=== PATIENT | male | born 2000 | race Caucasian/White ===

== ENCOUNTER 2024-06-05 08:37 | Emergency (ER) | payer OTHER, SELFPAY ==
[2024-06-05 08:56] VITALS: BP 128/77; PULSE 68; RESP 16; TEMP 36.8; O2SAT 98; BMI 22.9
--- NOTE | 2024-06-05 09:04 | XR_ITS ---
Examination: Toes, left 3 views Technique: Toes AP oblique lateral 3 views Date and time of exam: June 05, 2024 0828 hrs. Indications: Injury to the foot today, foot pain Findings: No acute fracture No dislocation No foreign body Impression: No acute fracture
--- NOTE | 2024-06-05 09:09 | PD.EDANKLE ---
Lower Extremity Injury RME/HPI General Chief Complaint: Ankle/Foot Injury Stated Complaint: LEFT FOOT PAIN S/P INJURY AT WORK Time Seen by Provider: 06/05/24 08:44 Source: patient Arrival date/time: 06/05/24 08:37 This is a 24-year-old male with no significant past medical history presents to the emergency department with complaints of left pinky toe pain and swelling x 1 day. He does report he works for the [employer] in which he was carrying a log it excellently dropped landing on his pinky toe. + Ecchymosis, pain Mode of arrival: ambulatory Related Data Allergies Allergy/AdvReac Type Severity Reaction Status Date / Time No Known Allergies Allergy Verified 06/05/24 08:40 Review of Systems Review of Systems Systems Reviewed: All systems reviewed, normal except as documented Narrative Review of Systems: Gen: No fever, no chills, no weight loss EYES: No discharge, no visual changes, no pain HEENT: No ear pain, no congestion, no sore throat PULM: No shortness of breath, no cough, no congestion CV: No chest pain, no dyspnea on exertion, no palpitations GI: No nausea, no vomiting, no diarrhea, no pain, no constipation : No frequency, no urgency, no dysuria Musc/skel: No joint pain, no back pain Skin: No rash Psyc: No hallucinations, no depression Heme/Lymph: No easy bleeding or bruising tendencies Neuro: No weakness, no headache ED Exam Narrative Physical exam: General: Sittiing in Exam table in no acute distress, answering questions appropriately HENT: normocephalic, atraumatic, EOMI, PERRLA, moist mucous membranes Chest: chest wall is nontender Cardiac: regular rate and rhythm, normal S1 and S2, no murmurs, rubs, or gallops, capillary refill ?2 seconds Pulmonary: clear to auscultation bilaterally, no wheezing, crackles, or rhonchi Abdominal: active bowel sounds, soft, nontender, nondistended Neuro: A&OX3, CN II-XII intact, sensation grossly intact bilaterally in UE and LE. Skin: no rashes, no ecchymosis Ext: + Left foot fifth digit ecchymotic tender to palpation. Course Quality Measures none Orders Category Date Time Status XR toe LT min 2V Stat Exams 06/05/24 09:04 Completed Vital Signs Vital signs: Vital Signs Temperature 98.3 F 06/05/24 08:56 Pulse Rate 68 06/05/24 08:56 Respiratory Rate 16 06/05/24 08:56 Blood Pressure 128/77 06/05/24 08:56 Pulse Oximetry (%) 98 06/05/24 08:56 Oxygen Delivery Method Room Air 06/05/24 08:56 Extremity Injury, Lower MDM Narrative MDM Narrative:: This is a 24-year-old male with no significant past medical history presents to the emergency department with complaints of left pinky toe pain and swelling x 1 day. He does report he works for the [employer] in which he was carrying a log it excellently dropped landing on his pinky toe. + Ecchymosis, pain Patient data External records reviewed:: [facility] previous records Clinical information provided by:: patient Social determinants that could affect healthcare access:: none Patient has the following chronic illnesses:: None How is presenting disease/condition affected by chronic disease/condition?: no chronic disease Evaluation data The following diagnostics were reviewed and interpreted by me:: radiology exam(s) Lab and/or radiology exams considered but not ordered:: No Interpretation Summary: Examination: Toes, left 3 views Technique: Toes AP oblique lateral 3 views Date and time of exam: June 05, 2024 0828 hrs. Indications: Injury to the foot today, foot pain Findings: No acute fracture No dislocation No foreign body Impression: No acute fracture Medications / Prescriptions Medications or Prescriptions considered but not ordered:: No Medication administrations:: No Consultations Consultation(s) initiated? (list below): No Diagnosis Extremity Injury, Lower Differential Diagnosis: ankle sprain and strain, puncture wound of foot, fracture of toe and ankle fracture Most likely diagnosis given after review of the tests above:: Toe fracture/contusion Admission Indicated Admission indicated?: not indicated Admission Request Was there a request for admission?: No Disposition Plan Disposition Plan: Discharge Discharge Attestation Discharge Attestation: The patient and all family members were given an opportunity to ask questions and understood the discharge instructions. Discharge instructions specifically effects, indications for sooner follow up or return to the emergency department, and the expected course of current diagnosis. Patient condition: Stable Discharge Plan Plan Patient Disposition: HOME (Self Care) Patient condition on transfer: Stable Prescriptions/Referrals Referrals: No Primary/Family,Physician [Primary Care Provider] - In 1 week Problem List Clinical Impression: Fracture of toe Patient/Caregiver Discharge Instructions Discharge Activity: activity as tolerated Education Materials: ED Fracture, Toe, Closed Additional Instructions: Please make sure you follow-up with your primary doctor or Worker's Comp. doctor. Your toe will take couple weeks to heal. 1 week of work. Return on 06/12/2024 Return to the emergency department this any worsening sedation condition. Print Language: Cambodian Stand Alone Forms: Stephanie Award Info., Patient Portal Info Letter PA/[employer]ENS[employer] AIDE Supervising Physician PA/[employer]ENS[employer] AIDE Supervising Physician: Dr Pyle
--- NOTE | 2024-06-05 10:00 | PC.NURSE ---
called xray for results, tech will notify radiologist
--- NOTE | 2024-06-05 10:37 | PC.NURSE ---
called xray for results, tech will notify radiologist
--- NOTE | 2024-06-05 12:33 | PC.NURSE ---
RN spoke with experimental technician, and informed NURSING DIRECTOR was requesting an official xray read from [facility], per tech will send over xray.
== END 2024-06-05 14:17 | disposition home or self-care (01) ==
PROVIDERS: Emergency Provider Emergency Medicine
DX: S92.502A Displaced unspecified fracture of left lesser toe(s), initial encounter for closed fracture (principal); W20.8XXA Other cause of strike by thrown, projected or falling object, initial encounter; Y99.0 Civilian activity done for income or pay
CPT/HCPCS: 73660; 99283